=== PATIENT | male | born 1950 | race Caucasian/White ===

== ENCOUNTER 2017-02-16 06:28 | Inpatient (IN) ==
--- NOTE | 2017-02-16 07:13 | Urology History & Physical ---
Date of Encounter: 02/16/17 Time of Encounter: 07:12 Assessment and Plan (1) Right renal mass Current Visit: Yes Status: Acute to or for right robotic assisted lap partial nephrectomy. History of Present Illness Chief complaint: right renal mass HPI: Mr. Houston is a 66 year old male with history of right renal mass. Patient here for right robotic partial nephrectomy. Past Med Surg Social Fam HX - Social History Smoking Status: Unknown if ever smoked Medications and Allergies 3 Allergy/AdvReac Type Severity Reaction Status Date / Time ivp dye Allergy Itching Uncoded 02/03/17 11:13 Review of Systems - Constitutional no chills - EENT Nose, mouth and throat: no dizziness Exam Initial Vital Signs Temp Pulse Resp BP Pulse Ox 98.1 F 57 18 126/81 98 02/16/17 06:53 02/16/17 06:53 02/16/17 06:53 02/16/17 06:53 02/16/17 06:53 - General physical appearance Present: well developed - Cardiovascular Cardiovascular exam IM: RRR Urology Results - Labs All other labs normal.
--- NOTE | 2017-02-16 07:14 | History & Physical Report ---
Date of Encounter: 02/16/17 Time of Encounter: 07:13 24 Hour HP Update - Instructions Instructions: If the History and Physical is less than 30 days old and was completed prior to A.M. admission and or procedure and has NOT been updated on calendar day of procedure please complete this update prior to performing procedure. - Update Patient reports changes in Medical Condition: No Changes in examination, assessment, or condition: No Changes in Medication: No Preop tests/diagnostics Reviewed: Yes Surgery Remains Indicated: Yes Consent for Planned Operative Procedure(s) Verified: Yes - Pre-Operative Checklist Preoperative Checklist Indicated: Yes Prophylactic Antibiotic Ordered: Yes Is VTE Prophylaxis Indicated?: Yes
[2017-02-16] MEDS ORDERED: Lidocaine -MPF 1% 2 ML VIAL ID ONE (07:31)
[2017-02-16] MEDS ORDERED: CeFAZolin Pre 2,000 MG/100 ML 2,000 MG/100 ML BAG IVPB ONE (07:31)
[2017-02-16] MEDS ORDERED: Albuterol 2.5 MG/3 ML NEBULIZER IH ONE (07:31)
[2017-02-16] MEDS ORDERED: Plasma-Lyte A (PH 7.4) 1,000 ML IVC SCH (07:45)
--- NOTE | 2017-02-16 07:57 | Anesthesia Evaluation PreOp ---
Date of Encounter: 02/16/17 Time of Encounter: 07:55 - Past History Planned Operation: Right Robotic Assisted Partial Nephrectomy Cardiac History: Denies any Significant Hx Pulmonary History: Smoker (40 years), Snore [employer] History: Denies Any Significant HX Other Medical History: Denies Any Significant HX Anesthesia History: No Prior Anesthetic Complications, Past Anesthesia Alcohol Use: rarely Drug use: none, marijuana Medications and Allergies No Known Home Drugs 02/16/17 [History] 3 Allergy/AdvReac Type Severity Reaction Status Date / Time ivp dye Allergy Itching Uncoded 02/16/17 07:18 - Meds/Allergy Pre-op Review Medications Reviewed: Yes Allergies Reviewed: Yes Beta Blockers on Current Med List: No Anesthesia Results - Labs Laboratory Tests 02/03/17 02/03/17 11:25 11:25 WBC 8.9 Hgb 15.1 Hct 45.1 Plt Count 227 Sodium 138 Potassium 4.3 BUN 13 Creatinine 0.95 - Imaging EKG: report reviewed (02/16/2017 SB, borderline LAD) Anesthesia Exam O2 Sat Height 1.83 m Height 1.83 m Weight 101.151 kg Weight 101.151 kg O2 Sat by Pulse Oximetry 98 Vital Signs Temp Pulse Resp BP Pulse Ox 98.1 F 57 18 126/81 98 02/16/17 06:53 02/16/17 06:53 02/16/17 06:53 02/16/17 06:53 02/16/17 06:53 Height: 6' Weight: 223 lbs NPO (# of Hours): 8 Pain Scale: 0 Pain Scale Used: Numeric (1 - 10) - HEENT Pupil (Motor): EOMI Mallampati: II Teeth: Missing (no upper teeth, missing numerous lower teeth) Oral Opening: Greater than 3 - [employer] LOC: Oriented [employer] Motor: Normal LUE, Normal LLE, Normal Face, Deficit RUE, Deficit RLE [employer] Sensory: Normal: LUE, RLE, LLE, Face, Deficit: RUE - Cardiac Rhythm: Regular Murmur: None - Pulmonary Breath Sounds: bilateral Clear Respiratory Effort: Symmetrical Anesthesia Assess/Plan ASA Score: 2 Modified Dupo Scale for Level of Consciousness: Cooperative, oriented, and tranquil Anesthetic Plan: General Monitoring Plan: Standard Monitors Recovery Plan: PACU
[2017-02-16] MEDS ORDERED: *HR* Midazolam HCl 2 MG/2 ML VIAL ONE (08:03)
[2017-02-16] MEDS ORDERED: Lidocaine -MPF 2% 2 ML VIAL ONE (08:06)
[2017-02-16] MEDS ORDERED: Ondansetron 4 MG/2 ML VIAL ONE (08:06)
[2017-02-16] MEDS ORDERED: *HR* Rocuronium Bromide 50 MG/5 ML VIAL ONE ×2 (08:06→11:31)
[2017-02-16] MEDS ORDERED: *HR* FentaNYL (PF) 100 MCG/2 ML VIAL ONE (08:07)
[2017-02-16] MEDS ORDERED: *HR* Propofol 200 MG/20 ML VIAL IVP ONE (08:07)
[2017-02-16] MEDS ORDERED: *HR* Labetalol 20 MG/4 ML SYRINGE IVP PRN (08:09)
[2017-02-16] MEDS ORDERED: *HR* HYDROmorphone (PF) 1 MG/ML SYRINGE IVP PRN (08:09)
[2017-02-16] MEDS ORDERED: *HR* Meperidine 25 MG/ML SYRINGE IVP PRN (08:09)
[2017-02-16] MEDS ORDERED: *HR* Promethazine 25 MG/ML VIAL IVP PRN (08:09)
[2017-02-16] MEDS ORDERED: EPHEDrine 50 MG/ML VIAL ONE (08:59)
[2017-02-16] MEDS ORDERED: Ringers Solution, Lactated 1,000 ML IVC SCH (09:25)
[2017-02-16] MEDS ORDERED: Mannitol 25% vial 12.5 GM/50 ML VIAL ONE (10:05)
[2017-02-16] MEDS ORDERED: Bupivacaine-MPF 0.25% 10 ML VIAL ONE (10:10)
[2017-02-16] MEDS ORDERED: Ketamine *HR* 500 MG/10 ML MDV ONE (10:17)
[2017-02-16] MEDS ORDERED: *HR* HYDROmorphone 2 MG/ML SYRINGE ONE (11:05)
[2017-02-16] MEDS ORDERED: Neostigmine Methylsulfate 3 MG/3 ML SYRINGE ONE (12:32)
--- NOTE | 2017-02-16 12:57 | Operative Note ---
Date of procedure: 02/16/17 Pre-op diagnosis: right renal mass and hematuria Post-op diagnosis: same Procedure: Right robotic-assisted laparoscopic partial nephrectomy and flexible cystoscopy Anesthesia: CARRI Surgeon: Rajesh Rome Carton Stapler: Nixon Bob Specimen: Right renal tumor Condition: stable Disposition: PACU Procedure in Detail: Patient was prepped and draped in normal sterile fashion. I then performed flexible cystoscopy with no obvious tumor seen in the bladder. Patient had been placed in right side up lateral position. Access to the peritoneal cavity was obtained using visual obturator technique. Robotic trochars and doctor assistant trochars were placed in standard fashion. The robot was brought in and docked. I was then able to reflect the colon medially. I decided to place a 5 mm trocar for liver retraction. This was performed without any issues. I was able to visualize the duodenum and this was kocherized medially. I visualized the patient's 2 renal veins with the renal artery in between. I then proceeded to dissect the fat off the kidney. Patient had a large amount of fat around the kidney. I was able to identify where the tumor was potentially located and then completely free up the kidney both cranially and caudally. I had almost complete flip of the kidney obtained. I then placed the intraoperative laparoscopic ultrasound probe into the patient's abdomen. This helped me identify the edges of the kidney tumor on the right side. I then marked the edges the tumor using monopolar scissors. Patient was then given 12-1/2 g of mannitol. I did give 1 mL of indocyanine green which helped me identify that I had not completely located the complete artery. This was done after I did a test placement of the bulldog clamp. Once I was satisfied with dissection of the artery I replaced the bulldog clamp on the artery. The tumor was dissected free. I could visualize the inferior aspect of the tumor. The tumor appeared encapsulated. It was completely freed from the kidney. I then ran a 3-0 v lock stitch deep into the resection bed. This was then followed by multiple 0 Vicryl CT1 stitches. The clamp was then removed off the artery. No obvious bleeding was noted. FloSeal was placed over top of the wound. The fat was then brought back over top of the kidney. This was stitched in place. All needles were removed and accounted for. Specimen was placed into a Endo Catch bag. Drain was placed through the doctor assistant port. All trochars were then removed. Specimen was removed. I did close the most inferior wound fascia using 0 Vicryl. All skin incisions were closed using 4 Monocryl with Dermabond placed over top. Patient tolerated well was taken to PACU in stable condition
--- NOTE | 2017-02-16 13:30 | Anesthesia Evaluation Post Op ---
Date of Encounter: 02/16/17 Time of Encounter: 13:28 - Vital Signs Vital Signs: vss - Lungs Lungs: Clear Ascult./Percussion - Airway Airway: Non-obstructed - Cardiovascular Baseline Rhythm - Mental Status Mental Status: Asleep with brisk response to light stimulation - Pain Pain Scale used: Randee (Faces) - Nausea Vomiting Nausea Vomiting: Not Present - Hydration Hydration: Ice chips
--- NOTE | 2017-02-16 13:51 | Electrocardiograph Report ---
[place] [id number] Test Date: 2017-02-16 Pat Name: Mayo Houston Department: 106 Room: 3A46 Gender: M [employer] Work[employer]: JUSTO : 1950 Requested By: Prieto Anguiano Order Number: [id number] Reading MD: Bhumi Cardoza Measurements Intervals [place] Rate: 56 P: 17 MI: 126 QRS: -24 QRSD: 102 T: 12 QT: 408 QTc: 401 Interpretive Statements SINUS BRADYCARDIA BORDERLINE LEFT AXIS DEVIATION Electronically Signed On 02-16-2017 13:50:19 EDT by Bhumi Cardoza
[2017-02-16] MEDS ORDERED: Naloxone 0.4 MG/ML INJ IVP PRN (13:56)
[2017-02-16] MEDS ORDERED: *HR* Morphine 2 MG/ML SYRINGE IVP PRN ×2 (13:56→17:27)
[2017-02-16] MEDS ORDERED: *HR* Promethazine 25 MG/ML VIAL IV PRN (13:56)
[2017-02-16] MEDS ORDERED: *HR* HYDROcodone/Acet 5/325 mg TABLET PO PRN ×2 (13:56→14:48)
[2017-02-16] MEDS: 0.9 % Sodium Chloride 1,000 ML IVC SCH ×2 (14:44→22:59)
[2017-02-16] MEDS: *HR* HYDROcodone/Acet 5/325 mg TABLET PO PRN (20:35)
[2017-02-17 05:01] LABS: Basophils % 0.2 %; Eosinophils % 0.1 %; Hematocrit 37.8 % (37.5-50.1); Hemoglobin 13.1 g/dL (12.9-16.9); Immature Granulocytes % 0.5 % (0-4); Lymphocytes # 1.9 K/mcL (0.6-4.6); Lymphocytes % 14.9 %; Mean Corpuscular HGB Conc 34.7 g/dL (31.6-35.5); Mean Corpuscular Hemoglobin 32.8 pg (28.0-33.3); Mean Corpuscular Volume 94.5 fL (83.0-100.0); Mean Platelet Volume 9.6 fL (9.4-12.4); Monocytes # 0.8 K/mcL (0.0-1.3); Monocytes % 6.1 %; Neutrophils # 9.8 K/mcL (1.6-8.9); Platelet Count 228 K/mcL (140-400); Red Cell Distribution Width 12.6 % (11.5-14.5); Segmented Neutrophils % 78.2 %
[2017-02-17 05:21] LABS: BUN/Creatinine Ratio 12 (6-26); Blood Urea Nitrogen 11 mg/dL (8-26); Calcium 8.2 mg/dL (8.6-10.8); Carbon Dioxide 21 mEq/L (19-29); Chloride 109 mEq/L (98-109); Glucose 119 mg/dL (70-99); Osmolality,Calculated 285 (280-300); Sodium 137 mEq/L (136-145); eGFR For African Americans > 60 (> 60); eGFR For Non-African Americans > 60 (> 60)
[2017-02-17] MEDS: 0.9 % Sodium Chloride 1,000 ML IVC SCH (06:47)
--- NOTE | 2017-02-17 07:04 | Urology Progress Note ---
Date of Encounter: 02/17/17 Time of Encounter: 07:03 - Assessment and Plan (1) Right renal mass Current Visit: Yes Status: Acute Assessment and plan: sp partial nephrectomy. doing well. jeff moon, likely jeff today around noon if ambulates well. clears until flatus. Progress Note Narrative: patient seen. feels great. up and in chair since surgery. no ambulation yet. Objective Initial Vital Signs Temp Pulse Resp BP Pulse Ox 98.1 F 57 18 126/81 98 02/16/17 06:53 02/16/17 06:53 02/16/17 06:53 02/16/17 06:53 02/16/17 06:53 - General physical appearance Present: well developed - Abdomen Present: soft (incisions c/d/i) - Labs 02/17/17 04:25 02/17/17 04:25 Diabetes panel 02/17/17 Range/Units 04:25 Sodium 137 (136-145) mEq/L Potassium 4.0 (3.5-4.5) mEq/L Chloride 109 (98-109) mEq/L Carbon Dioxide 21 (19-29) mEq/L BUN 11 (8-26) mg/dL Creatinine 0.90 (0.72-1.25) mg/dL Glucose 119 H (70-99) mg/dL Calcium 8.2 L (8.6-10.8) mg/dL Calcium panel 02/17/17 Range/Units 04:25 Calcium 8.2 L (8.6-10.8) mg/dL Pituitary panel 02/17/17 Range/Units 04:25 Sodium 137 (136-145) mEq/L Potassium 4.0 (3.5-4.5) mEq/L Chloride 109 (98-109) mEq/L Carbon Dioxide 21 (19-29) mEq/L BUN 11 (8-26) mg/dL Creatinine 0.90 (0.72-1.25) mg/dL Glucose 119 H (70-99) mg/dL Calcium 8.2 L (8.6-10.8) mg/dL Adrenal panel 02/17/17 Range/Units 04:25 Sodium 137 (136-145) mEq/L Potassium 4.0 (3.5-4.5) mEq/L Chloride 109 (98-109) mEq/L Carbon Dioxide 21 (19-29) mEq/L BUN 11 (8-26) mg/dL Creatinine 0.90 (0.72-1.25) mg/dL Glucose 119 H (70-99) mg/dL Calcium 8.2 L (8.6-10.8) mg/dL - VTE Documentation of Mechanical Device: Intermittent pneumatic compression device Consult Discharge Plan - Plan [facility]errals: [facility] [Primary Care Provider[facility] -
[2017-02-17] MEDS: *HR* HYDROcodone/Acet 5/325 mg TABLET PO PRN (08:10)
[2017-02-17 10:00] VITALS: BP 110/72
--- NOTE | 2017-02-17 11:46 | Discharge Summary ---
Date of Encounter: 02/17/17 Time of Encounter: 11:44 - Discharge Diagnosis (1) Right renal mass Priority: Primary Status: Acute - Discharge Medications Prescriptions: HYDROcodone/Acet 5/325 mg [[place] 5-325 mg] 2 tab PO Q4H PRN #20 tablet PRN Reason: pain 1-6 Home Medications: HYDROcodone/Acet 5/325 mg [[place] 5-325 mg] 2 tab PO Q4H PRN #20 tablet 02/17/17 [Rx] Allergies/Adverse Reactions: 3 Allergy/AdvReac Type Severity Reaction Status Date / Time ivp dye Allergy Itching Uncoded 02/16/17 07:18 Procedures and tests throughout hospitalization: right robotic assisted lap partial nephrectomy on 02/16/17 Labs on day of discharge: Labs from last 24 hours 02/17/17 02/17/17 04:25 04:25 WBC 12.6 H RBC 4.00 L Hgb 13.1 Hct 37.8 MCV 94.5 MCH 32.8 MCHC 34.7 RDW 12.6 Plt Count 228 MPV 9.6 Immature Gran % 0.5 Seg Neutrophils % 78.2 Lymphocytes % 14.9 Monocytes % 6.1 Eosinophils % 0.1 Basophils % 0.2 Neutrophils # 9.8 H Lymphocytes # 1.9 Monocytes # 0.8 Eosinophils # 0.0 Basophils # 0.0 Sodium 137 Potassium 4.0 Chloride 109 Carbon Dioxide 21 BUN 11 Creatinine 0.90 Est GFR ( Amer) > 60 Est GFR (Non-Af Amer) > 60 BUN/Creatinine Ratio 12 Glucose 119 H Calculated Osmolality 285 Calcium 8.2 L Date of admission: 02/16/17 13:46 Primary care physician: PCP [place] Discharging clinician: Rajesh Rome Anticipated date of discharge: 02/17/17 - Patient Status Disposition: Home, Self-Care Condition: Good Functional capacity at discharge: independent ambulation Overall status at discharge: patient is progressing back to baseline - Discharge Instructions Follow Up With: [facility],PCP [Primary Care Provider] - Rajesh Rome MD [Partnered Physician] - (next week) Additional Instructions: no heavy lifting more than 20lbs for 4 weeks. call with fever greater than 101.5. - Diet and Activity Activity: increase activity as tolerated Diet: advance to your usual diet - Hospital Course Hospital course: Mr. Houston is a 66 year old male sp robotic right partial nephrectomy. did well overnight with early ambulation. jerry clears. passed flatus. minimal drainage output. Time spent discussing smoking cessation with patient: 3 to 10 minutes - Time Spent with Patient Total time spent providing and/or coordinating discharge services: Less than 30 minutes Exam Initial Vital Signs Temp Pulse Resp BP Pulse Ox 98.1 F 57 18 126/81 98 02/16/17 06:53 02/16/17 06:53 02/16/17 06:53 02/16/17 06:53 02/16/17 06:53 - General physical appearance Present: well developed - Abdomen Abdomen: Present: soft (sterling drain removed ) - VTE Documentation of Mechanical Device: Intermittent pneumatic compression device
== END 2017-02-17 13:39 | disposition home or self-care (01) | DRG 658 ==
LOC: SAMDAY 06:28 → EDUNIT# 07:45 → 3ANU 13:46
PROVIDERS: ADMIT Urology; ATTEND Urology